=== PATIENT | male | born 1960 | race Hispanic/Latino ===

== ENCOUNTER 2021-11-28 13:31 | Emergency (ER) | payer BC | END 2021-11-28 15:52 | disposition home or self-care (01) | LOC: CSHERS 13:31 | DX: M25.462 Effusion, left knee (principal); I10 Essential (primary) hypertension; E78.5 Hyperlipidemia, unspecified ==

== ENCOUNTER 2023-01-30 10:56 | Inpatient (IN) | payer BC ==
[~2023-01-30 10:56] MED LIST: Iopamidol 370 76% 100 ML VIAL ONE
[2023-01-30] MEDS ORDERED: Lidocaine 1% w/Epinephrine 1:200K 30 ML VIAL ONE (11:31)
[2023-01-30 11:36] LABS: #Monocytes 0.8 10x3/uL (0.0-1.1); #Neutrophils 6.6 10x3/uL (1.5-8.4); %Basophils 0.4 % (0.0-2.0); %Eosinophils 0.3 % (0.0-6.0); %Lymphocytes 25.5 % (18.0-47.0); %Monocytes 7.9 % (0.0-10.0); %Neutrophils 65.2 % (40.0-75.0); Mean Corpuscular HGB CONC 35.7 g/dL (32.0-36.0); Mean Corpuscular Hemoglobin 32.1 pg (27.0-33.0); Mean Corpuscular Volume 89.9 fl (81.2-95.1); Platelet Count 218 10x3/uL (150-450); RBC Distribution Width 11.7 % (11.5-14.5); Red Blood Cell (RBC) Count 4.67 10x6/uL (4.32-5.72); White Blood Cell (WBC) Count 10.1 10x3/uL (3.5-10.5)
[2023-01-30 11:53] LABS: ALT (SGPT) 31 U/L (8-55); AST (SGOT) 20 U/L (5-34); Albumin 4.3 g/dL (3.4-4.8); Alkaline Phosphatase 104 U/L (40-110); Anion Gap 18 mmol/L (10-20); BUN (Urea Nitrogen) 9 mg/dL (8.4-25.7); Bilirubin, Total 0.6 mg/dL (0.2-1.2); CK (CPK) 81 U/L (30-200); Calc. Creatinine Clearance 0 mL/min (70-130); Calcium 9.2 mg/dL (7.8-10.44); Carbon Dioxide 24 mmol/L (23-31); Chloride 104 mmol/L (98-107); Estimated GFR 101; Glucose 131 mg/dL (80-115); Lipase 31 U/L (8-78); Potassium 4.1 mmol/L (3.5-5.1); Protein, Total 7.3 g/dL (5.8-8.1); Sodium 142 mmol/L (136-145)
[2023-01-30 11:57] LABS: Acetaminophen Less than 10 mcg/mL (10.0-30.0); Alcohol Less than 10.0 mg/dL (Less than 10); Salicylate Less than 8.0 mg/dL (15.0-30.0)
[2023-01-30] MEDS ORDERED: Aspirin Chewable 81 MG TAB ONE (13:57)
[2023-01-30] MEDS ORDERED: Ondansetron ODT 4 MG TAB PO PRN (14:27)
[2023-01-30] MEDS ORDERED: Ondansetron PF 4 MG/2 ML Vial IVP PRN (14:27)
[2023-01-30] MEDS ORDERED: Acetaminophen 650 MG Suppository PR PRN (14:27)
[2023-01-30] MEDS ORDERED: hydrALAZINE 20 MG/ML VIAL SLOW IVP PRN (14:27)
[2023-01-30 15:48] LABS: Bilirubin Neg (Negative); Blood, Urine Negative (Negative); Clarity Clear (Clear); Glucose, Urine (Dipstick) Normal (Negative); Ketone, Urine Negative (Negative); Leukocyte Negative (Negative); Nitrite Negative (Negative); Protein, Urine (Dipstick) Negative (Neg-Trace); Urobilinogen Normal mg/dL (Less than 2)
[2023-01-30 15:57] LABS: Amphetamine Not Detected (NotDetected); Barbiturates Screen Not Detected (NotDetected); Benzodiazepine Screen Not Detected (NotDetected); Cocaine Metabolite Screen Not Detected (NotDetected); Methadone Not Detected (NotDetected); Methamphetamine Not Detected (NotDetected); Opiate Screen Not Detected (NotDetected); Oxycodone Screen Not Detected (NotDetected); Phencyclidine (PCP) Not Detected (NotDetected); THC/Cannabinoid Screen Not Detected (NotDetected); Tricyclic Screen Not Detected (NotDetected)
[2023-01-30 16:14] LABS: Bacteria/HPF 2+ HPF (None Seen); CAUTI Indications for Culture Alt mental st,lethar; RBC/HPF 0-3 HPF (0-3); Squamous Epithelial 0-3 HPF (0-3); WBC/HPF 0-3 HPF (0-3)
[2023-01-30 16:15] LABS: Mucous/LPF 2+ LPF (<2+); Urine Culture Reflex No No
[2023-01-30 16:37] VITALS: BMI 34.4
[2023-01-30] MEDS ORDERED: Atorvastatin Calcium 40 MG TAB PO SCH (21:00)
[2023-01-31 04:47] LABS: #Eosinphils 0.1 10x3/uL (0.0-0.5); #Monocytes 0.8 10x3/uL (0.0-1.1); #Neutrophils 6.5 10x3/uL (1.5-8.4); %Basophils 0.4 % (0.0-2.0); %Eosinophils 0.7 % (0.0-6.0); %Lymphocytes 25.2 % (18.0-47.0); %Monocytes 8.3 % (0.0-10.0); %Neutrophils 65.1 % (40.0-75.0); Hemoglobin 14.3 g/dL (13.5-17.5); Mean Corpuscular Hemoglobin 32.1 pg (27.0-33.0); Mean Corpuscular Volume 91.5 fl (81.2-95.1); Mean Platelet Volume 10.2 fl (7.4-10.4); Platelet Count 210 10x3/uL (150-450); RBC Distribution Width 11.6 % (11.5-14.5); Red Blood Cell (RBC) Count 4.46 10x6/uL (4.32-5.72)
[2023-01-31 05:05] LABS: Anion Gap 12 mmol/L (10-20); BUN (Urea Nitrogen) 9 mg/dL (8.4-25.7); Calc. Creatinine Clearance 166 mL/min (70-130); Calcium 8.7 mg/dL (7.8-10.44); Carbon Dioxide 25 mmol/L (23-31); Cardiac Risk 4.8 (Less than 4.5); Chloride 104 mmol/L (98-107); Cholesterol 140 mg/dl (< 200 Desired); Estimated GFR 105; Glucose 132 mg/dL (80-115); HDL Cholesterol 29 mg/dL (>60 Neg Risk); LDL Cholesterol, Calculated 53 mg/dL; Potassium 3.6 mmol/L (3.5-5.1); Sodium 137 mmol/L (136-145); Triglycerides 291 mg/dL (Less than 150)
[2023-01-31] MEDS: Metoprolol Tartrate 25 MG TAB PO SCH (08:45)
[2023-01-31] MEDS ORDERED: Aspirin 81 mg Enteric Coated Tablet PO SCH (09:00)
[2023-01-31] MEDS ORDERED: Iopamidol 370 76% 100 ML VIAL ONE (10:08)
[2023-01-31] MEDS ORDERED: levETIRAcetam 500 MG/5 ML VIAL SLOW IVP SCH (15:00)
[2023-01-31] MEDS ORDERED: levETIRAcetam 1,000 MG in Sodium Chloride 0.9% 100 ML SLOW IVP SCH (15:45)
[2023-01-31] MEDS: Acetaminophen 325 MG TAB PO PRN (17:14)
[2023-01-31] MEDS ORDERED: niCARdipine 25 MG in Sodium Chloride 0.9% 250 ML 250 ML IVPB SCH (18:15)
[2023-01-31] MEDS: levETIRAcetam 500 MG TAB PO SCH (20:40)
[2023-01-31] MEDS: Atorvastatin Calcium 20 MG TAB PO SCH (20:40)
[2023-01-31] MEDS ORDERED: levETIRAcetam 100 mg/ml Oral Solution PO SCH (21:00)
[2023-02-01] MEDS: Metoprolol Tartrate 25 MG TAB PO SCH (07:58)
[2023-02-01] MEDS: Aspirin 325 MG TAB PO SCH (07:58)
[2023-02-01] MEDS: Lisinopril 5 MG TAB PO SCH (07:58)
[2023-02-01] MEDS: levETIRAcetam 500 MG TAB PO SCH ×2 (07:58→20:52)
[2023-02-01] MEDS: Atorvastatin Calcium 20 MG TAB PO SCH (20:52)
[2023-02-02] MEDS: Acetaminophen 325 MG TAB PO PRN (03:00)
[2023-02-02] MEDS: Metoprolol Tartrate 25 MG TAB PO SCH (09:14)
[2023-02-02] MEDS: levETIRAcetam 500 MG TAB PO SCH (09:14)
[2023-02-02] MEDS: Aspirin 325 MG TAB PO SCH (09:14)
[2023-02-02] MEDS: Lisinopril 5 MG TAB PO SCH (09:15)
[2023-02-02 12:04] VITALS: BP 122/79; TEMP 97.6
== END 2023-02-02 13:17 | disposition home or self-care (01) | DRG 64 ==
LOC: CSHERS 10:56 → CSHTELE 14:55 → CSHIMCU 01-31 15:39 → CSHTELE 02-02 07:23
PROVIDERS: ADMIT Internal Medicine; ATTEND Internal Medicine
PROC: 0HQ1XZZ Repair Face Skin, External Approach (ICD-10-PCS; principal; 2023-01-30)
PROC: 4A10X4Z Monitoring of Central Nervous Electrical Activity, External Approach (ICD-10-PCS; 2023-02-01)
DX: I62.9 Nontraumatic intracranial hemorrhage, unspecified (principal); G93.41 Metabolic encephalopathy; I10 Essential (primary) hypertension; E78.5 Hyperlipidemia, unspecified; E11.9 Type 2 diabetes mellitus without complications; R56.9 Unspecified convulsions; I25.10 Atherosclerotic heart disease of native coronary artery without angina pectoris; S01.01XA Laceration without foreign body of scalp, initial encounter; Z95.5 Presence of coronary angioplasty implant and graft; Z86.73 Personal history of transient ischemic attack (TIA), and cerebral infarction without residual deficits; Z79.899 Other long term (current) drug therapy; Z79.82 Long term (current) use of aspirin
CPT/HCPCS: 12013; 36415; 36416; 70450; 70496; 70551; 71045; 80048; 80053; 80061; 80306; 80307; 81001; 82140; 82550; 83690; 83880; 84146; 84443; 84484; 85025; 93005; 93306; 94760; 95816; 95819; 95957; 96360; J0360; J1650; J1953; J3490; J7050; Q9967